=== PATIENT | male | born 1970 | race Two or more races ===

== ENCOUNTER 2020-04-07 20:45 | Emergency (ER) | payer MEDICAID, OTHER ==
[~2020-04-07] VITALS: Ht 157.5 cm; Wt 81.6 kg
[2020-04-07 21:31] VITALS: BP 122/84
== END 2020-04-07 22:05 | disposition left against medical advice (07) ==
LOC: ER 20:45 → EDBD 20:45 → ER 22:05
DX: R51 Headache (principal); Z53.21 Procedure and treatment not carried out due to patient leaving prior to being seen by health care provider